=== PATIENT | female | born 1990 | race American Indian/Alaskan Native ===

== ENCOUNTER 2017-02-15 05:20 | Emergency (ER) | payer OTHER ==
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
[2017-02-15 12:05] VITALS: BP 114/78
== END 2017-02-15 12:05 | disposition home or self-care (01) ==
LOC: ED 05:20
DX: S46.912A Strain of unspecified muscle, fascia and tendon at shoulder and upper arm level, left arm, initial encounter (principal); V89.2XXA Person injured in unspecified motor-vehicle accident, traffic, initial encounter; Y93.89 Activity, other specified; Y99.8 Other external cause status; Y92.89 Other specified places as the place of occurrence of the external cause
CPT/HCPCS: 99282